=== PATIENT | female | born 1970 | race Caucasian/White ===

== ENCOUNTER 2018-12-11 07:22 | Day surgery (SDC) | payer OTHER ==
[2018-12-05 15:32] VITALS: BMI 19.6
[2018-12-11] MEDS ORDERED: LIDOCAINE HCL/PF 2% SDV 5ML VIAL ONE (08:05)
[2018-12-11] MEDS ORDERED: PROPOFOL 20 ML ONE ×3 (08:05)
[2018-12-11 09:48] VITALS: TEMP 98.2
[2018-12-11 10:15] VITALS: BP 102/86; PULSE 61
--- NOTE | 2018-12-13 16:49 | PATH ---
Surgical Pathology Report Patient Name: ERIKA RUDOLPH [facility]. Rec. #: [id number] /Age/Gender: 1970 (Age: 48) / F Account: [id number] [facility] Taken: 12/11/2018 Received: 12/11/2018 Reported: 12/13/2018 Physicians: Butch Allen M.D. Specimen(s) Received RECTOSIGMOID POLYP Clinical History Screening Postoperative diagnosis: Polyp Final Diagnosis RECTOSIGMOID POLYP, POLYPECTOMY: CONSISTENT WITH INFLAMMATORY POLYP. Electronically Signed Melani Pastor M.D. Gross Description Received in formalin, labeled "rectosigmoid polyp" is a voss, irregular portion of soft tissue measuring 0.2 cm. in greatest dimension. The specimen is submitted in toto in one cassette. 12/12/201812/12/2018
== END 2018-12-11 10:15 | disposition home or self-care (01) ==
LOC: FASU-ENDO 07:22
PROVIDERS: ATTEND Internal Medicine Gastroenterology
PROC: 0DBN8ZX Excision of Sigmoid Colon, Via Natural or Artificial Opening Endoscopic, Diagnostic (ICD-10-PCS; principal; 2018-12-11 09:21)
DX: Z12.11 Encounter for screening for malignant neoplasm of colon (principal); D12.7 Benign neoplasm of rectosigmoid junction
CPT/HCPCS: 88305-TC